=== PATIENT | male | born 1960 ===

== ENCOUNTER 2021-01-08 17:51 | Emergency (ER) | payer OTHER ==
[2021-01-08 18:02] VITALS: BP 123/61; PULSE 68; TEMP 98.3; BMI 25.4
[2021-01-08] MEDS ORDERED: KETOROLAC TROMETHAMINE 30 MG/1 ML VIAL IVPUSH ONE (18:27)
[2021-01-08] MEDS ORDERED: KETOROLAC TROMETHAMINE 30 MG/1 ML VIAL ONE (19:21)
[2021-01-08 19:29] LABS: BASO % 0.6 % (0-2.0); EOS % 1.5 % (0-4.5); HEMATOCRIT 39.4 % (35.4-49); HEMOGLOBIN 12.4 GM/dL (11.7-16.9); LYMPH % 52.3 % (8-40); MCH 23.4 pg (25.7-33.7); MCHC 31.5 g/dl (32.0-35.9); MEAN CELL VOLUME 74.2 fl (80-96); MONO % 14.2 % (3.8-10.2); NEUT % 31.4 % (42.8-82.8); PLATELET COUNT 198 10^3/uL (134-434); RBC 5.31 M/mm3 (4.00-5.60); WHITE BLOOD COUNT 3.7 K/mm3 (4.0-10.0)
[2021-01-08 19:36] LABS: URINE APPEARANCE CLEAR; URINE BILIRUBIN NEGATIVE (NEGATIVE); URINE COLOR YELLOW; URINE GLUCOSE (UA) NEGATIVE (NEGATIVE); URINE KETONE NEGATIVE (NEGATIVE); URINE LEUK ESTERASE NEGATIVE (NEGATIVE); URINE NITRITE NEGATIVE (NEGATIVE); URINE PROTEIN NEGATIVE (NEGATIVE); URINE UROBILINOGEN 0.2 mg/dL (0.2-1.0)
[2021-01-08 19:48] LABS: CHLORIDE 109 mmol/L (98-107); SODIUM 142 mmol/L (136-145)
[2021-01-08 19:50] LABS: CALCIUM 8.7 mg/dL (8.5-10.1)
[2021-01-08 19:51] LABS: ALBUMIN 3.5 g/dl (3.4-5.0); ANION GAP 4 MMOL/L (8-16); BLOOD UREA NITROGEN 17.5 mg/dL (7-18); CO2 28 mmol/L (21-32); GLUCOSE,RANDOM 69 mg/dL (74-106); LIPASE 323 U/L (73-393)
[2021-01-08 19:54] LABS: CREATININE 1.2 mg/dL (0.55-1.3); SGOT/AST 19 U/L (15-37); SGPT/ALT 31 U/L (13-61)
[2021-01-08 19:55] LABS: BILIRUBIN,TOTAL 0.3 mg/dL (0.2-1); TOT PROT 6.8 g/dl (6.4-8.2)
[2021-01-08 19:57] LABS: ALK PHOS 58 U/L (45-117)
== END 2021-01-08 21:05 | disposition home or self-care (01) ==
LOC: JER 17:51
PROC: 3E0233Z Introduction of Anti-inflammatory into Muscle, Percutaneous Approach (ICD-10-PCS; principal; 2021-01-08)
DX: R53.83 Other fatigue (principal)
CPT/HCPCS: 36415; 80053; 81003; 83690; 84443; 84484; 85025; 93005; 93010; 99284-25